=== PATIENT | female | born 1980 ===

== ENCOUNTER 2017-06-16 19:53 | Emergency (ER) | payer MEDICAID, OTHER ==
[2017-06-16 20:09] VITALS: BP 157/61; PULSE 64; RESP 16; TEMP 98.3; O2SAT 100
--- NOTE | 2017-06-16 20:46 | ED PDOC ---
HPI: Allergic Reaction Time Seen by Provider: 06/16/17 20:11 Chief Complaint (Nursing): Abnormal Skin Integrity Chief Complaint (Provider): Rash History Per: Patient History/Exam Limitations: no limitations Onset/Duration Of Symptoms: Hrs Current Symptoms Are (Timing): Still Present Possible Cause: Unknown Associated Symptoms: Skin Rash, Itching Home/EMS Treatment: None Additional Complaint(s): 36yo female with no known allergies, presents to ED for evaluation of an itchy rash to her bilateral inner elbows, behind both knees and on her left lower leg. She denies any tongue or throat swelling, shortness of breath, chest pain. Patient denies any new foods, drinks, clothing, detergent use. She denies taking any medication for her symptoms. Patient has no other medical complaints. Past Medical History Reviewed: Historical Data, Nursing Documentation, Vital Signs Vital Signs: Last Vital Signs Temp 98.3 F 06/16/17 20:07 Pulse 64 06/16/17 20:07 Resp 16 06/16/17 20:07 BP 157/61 H 06/16/17 20:07 Pulse Ox 100 06/16/17 20:07 - Medical History PMH: No Chronic Diseases - Surgical History Surgical History: No Surg Hx - Family History Family History: States: No Known Family Hx - Home Medications Home Medications: Ambulatory Orders Medication Instructions Recorded DiphenhydrAMINE [Benadryl] 25 mg PO Q6 #30 cap 04/20/15 Triamcinolone 0.1% [Triamcinolone 1 applic TP BID #1 tube 04/20/15 0.1% Cream] DiphenhydrAMINE [Benadryl] 50 mg PO Q6H PRN #20 cap 06/16/17 Famotidine [Pepcid] 20 mg PO DAILY #5 tab 06/16/17 predniSONE [predniSONE Tab] 20 mg PO DAILY #12 tab 06/16/17 - Allergies Allergies/Adverse Reactions: Allergies Allergy/AdvReac Type Severity Reaction Status Date / Time No Known Allergies Allergy Verified 04/20/15 10:26 Review of Systems ROS Statement: Except As Marked, All Systems Reviewed And Found Negative ENT: Negative for: Throat Swelling Cardiovascular: Negative for: Chest Pain Respiratory: Negative for: Shortness of Breath Skin: Positive for: Rash Physical Exam - Reviewed Nursing Documentation Reviewed: Yes Vital Signs Reviewed: Yes - Physical Exam Appears: Positive for: Non-toxic Head Exam: Positive for: ATRAUMATIC, NORMAL INSPECTION, NORMOCEPHALIC Skin: Positive for: Warm, Dry, Rash (erythematous rash with irregular borders and blanching noted to bilateral antecubital fossa, popliteal fossa and on anterior left lower leg.) Eye Exam: Positive for: Normal appearance, EOMI, PERRL ENT: Positive for: Normal ENT Inspection. Negative for: Pharyngeal Erythema Neck: Positive for: Normal, Supple Cardiovascular/Chest: Positive for: Regular Rate, Rhythm Respiratory: Positive for: Normal Breath Sounds. Negative for: Wheezing, Respiratory Distress Neurologic/Psych: Positive for: Alert, Oriented. Negative for: Motor/Sensory Deficits - ECG O2 Sat by Pulse Oximetry: 100 (RA) Pulse Ox Interpretation: Normal - Progress ED Course And Treament: Impression: Allergic Reaction Plan: -- Patient to be discharged home with Prednisone, Benadryl and Pepcid. Instructed to take medication as prescribed and to follow up with PCP in 2-3 days. Scribe Attestation: Documented by Narcisa Fournier, acting as a scribe for XAVI Swift. Provider Scribe Attestation: All medical record entries made by the Scribe were at my direction and personally dictated by me. I have reviewed the chart and agree that the record accurately reflects my personal performance of the history, physical exam, medical decision making, and the department course for this patient. I have also personally directed, reviewed, and agree with the discharge instructions and disposition. Disposition - Clinical Impression Clinical Impression: Urticaria - Disposition Condition: STABLE Prescriptions: DiphenhydrAMINE [Benadryl] 50 mg PO Q6H PRN #20 cap PRN Reason: Itching / Pruritus Famotidine [Pepcid] 20 mg PO DAILY #5 tab predniSONE [predniSONE Tab] 20 mg PO DAILY #12 tab Instructions: Mary Ellen (DC) Forms: [email or web address] (Frisian)
== END 2017-06-16 21:53 | disposition home or self-care (01) ==
LOC: H.ER 19:53
DX: L50.0 Allergic urticaria (principal)

== ENCOUNTER 2017-07-23 17:04 | Emergency (ER) | payer OTHER ==
[2017-07-23 17:24] VITALS: TEMP 98.2
--- NOTE | 2017-07-23 18:24 | ED PDOC ---
Lower Extremity Pain/Injury Time Seen by Provider: 07/23/17 18:08 Chief Complaint (Nursing): Lower Extremity Problem/Injury Chief Complaint (Provider): Left Leg Injury History Per: Patient History/Exam Limitations: language barrier (translated by jade) Additional Complaint(s): 37 year old female with no significant past medical history present to the emergency department complaining of left leg pain x 5 days s/p metal flat cart striking her leg at work 5 days ago. Patient did not seek medical attention at time of injury but presents today with persistent pain to left calf. Motrin has not helped the pain. Patient able to walk but has pain when doing so and now states pain radiates down to her foot. PMD: Dr. Allen Past Medical History Reviewed: Historical Data, Nursing Documentation, Vital Signs Vital Signs: Last Vital Signs Temp 98.2 F 07/23/17 17:21 Pulse 62 07/23/17 17:21 Resp 18 07/23/17 17:21 BP 148/88 07/23/17 17:21 Pulse Ox 100 07/23/17 17:21 - Medical History PMH: No Chronic Diseases - Surgical History Surgical History: No Surg Hx - Family History Family History: States: No Known Family Hx - Living Arrangements Living Arrangements: With Family - Social History Current smoker - smoking cessation education provided: No Alcohol: None Drugs: Denies - Home Medications Home Medications: Ambulatory Orders Medication Instructions Recorded DiphenhydrAMINE [Benadryl] 25 mg PO Q6 #30 cap 04/20/15 Triamcinolone 0.1% [Triamcinolone 1 applic TP BID #1 tube 04/20/15 0.1% Cream] DiphenhydrAMINE [Benadryl] 50 mg PO Q6H PRN #20 cap 06/16/17 Famotidine [Pepcid] 20 mg PO DAILY #5 tab 06/16/17 predniSONE [predniSONE Tab] 20 mg PO DAILY #12 tab 06/16/17 - Allergies Allergies/Adverse Reactions: Allergies Allergy/AdvReac Type Severity Reaction Status Date / Time No Known Allergies Allergy Verified 07/23/17 17:21 Wells Criteria for PE - Wells Criteria for Pulmonary Embolism Clinical Signs and Symptoms of DVT: No P.E is #1 Diagnosis, or Equally Likely: No Heart Rate >100: No Immobilization at least 3 days;Surgery previous 4 weeks: No Previous, objectively diagnosed PE or DVT: No Hemoptysis: No Malignancy w/treatment within 6 months, or palliative: No Total Score: 0 Review of Systems ROS Statement: Except As Marked, All Systems Reviewed And Found Negative Musculoskeletal: Positive for: Leg Pain (left ) Physical Exam - Reviewed Nursing Documentation Reviewed: Yes Vital Signs Reviewed: Yes - Physical Exam Appears: Positive for: Well, Non-toxic, No Acute Distress Skin: Positive for: Normal Color. Negative for: Rash Eye Exam: Positive for: Normal appearance Extremity: Positive for: Other (tenderness to left calf region, full rom of left knee and ankle, normal distal sensation left lower extremity) Neurologic/Psych: Positive for: Alert, Oriented, Gait (steady) - Laboratory Results Urine POC: Negative - ECG O2 Sat by Pulse Oximetry: 100 (RA) Pulse Ox Interpretation: Normal - Other Rad Left tib/fib x-ray X-Ray: Interpreted by Me, Viewed By Me X-Ray Interpretation: no fx, no dis Medical Decision Making Medical Decision Making: Time: 1807 Initial Impression: 37 y/o female with left leg pain Initial Plan: --Urine --Naproxen 500 mg PO --Tibia fibula left [RAD] Patient is aware of x-ray results. She reports improvement of pain after meds given. Prescriptions for Naprosyn and Flexeril provided. Patient was instructed to ice and elevate affected area and was referred to clinic for follow up. Scribe Attestation: Documented by Cait Menard, acting as a scribe for Lizette Clark PA-C Provider Scribe Attestation: All medical record entries made by the Scribe were at my direction and personally dictated by me. I have reviewed the chart and agree that the record accurately reflects my personal performance of the history, physical exam, medical decision making, and the department course for this patient. I have also personally directed, reviewed, and agree with the discharge instructions and disposition. Disposition - Clinical Impression Clinical Impression: Contusion of leg - Patient ED Disposition Is Patient to be Admitted: No Counseled Patient/Family Regarding: Studies Performed, Diagnosis, Need For Followup, Rx Given - Disposition Referrals: [facility] [Outside] Disposition: Routine/Home Disposition Time: 19:36 Condition: STABLE Additional Instructions: Ice, rest and elevate affected area. Take prescription meds as directed as needed for pain. Follow-up with clinic in 2-3 days. Instructions: Contusion (DC), Calf Stretches, Lower Extremity Muscle Strain Forms: [facility] (French), [facility] ED School/Work Excuse Print Language: PERSIAN
[2017-07-23] MEDS ORDERED: Naproxen 500 MG TAB PO STA (18:27)
[2017-07-23] MEDS ORDERED: Naproxen 500 MG TAB PO ONE (18:55)
[2017-07-23 19:46] VITALS: BP 138/80; PULSE 82; RESP 15; O2SAT 99
--- NOTE | 2017-07-24 09:03 | RAD ---
PROCEDURE: Radiographs of the left tibia and fibula. HISTORY: trauma COMPARISON: None available. TECHNIQUE: Frontal and lateral views obtained. FINDINGS: BONES: Bone alignment and mineralization are normal. There is no acute displaced fracture or bone destruction. JOINT SPACES: Unremarkable. OTHER FINDINGS: Soft tissues are normal. IMPRESSION: No acute fracture.
== END 2017-07-23 19:46 | disposition home or self-care (01) ==
LOC: H.ER 17:04
DX: S80.12XA Contusion of left lower leg, initial encounter (principal); W22.8XXA Striking against or struck by other objects, initial encounter; Y99.0 Civilian activity done for income or pay